=== PATIENT | male | born 1980 | race American Indian/Alaskan Native ===

== ENCOUNTER 2020-01-17 18:21 | Emergency (ER) | payer MEDICAID ==
[2020-01-17] MEDS ORDERED: Acetaminophen/HYDROcodone 325-5 MG Tab PO ONE (18:22)
[2020-01-17 18:29] VITALS: BP 129/79; PULSE 90
[2020-01-17] MEDS ORDERED: Acetaminophen/HYDROcodone 325-10 MG Tab PO ONE (18:44)
[2020-01-17] MEDS ORDERED: Ketorolac 30 MG/ML SDV IM ONE (18:44)
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
[2020-01-17] MEDS ORDERED: Acetaminophen/HYDROcodone 325-5 MG Tab ONE (21:43)
== END 2020-01-17 22:00 | disposition home or self-care (01) ==
LOC: DL.ED 18:21
DX: S00.03XA Contusion of scalp, initial encounter (principal); S00.83XA Contusion of other part of head, initial encounter; F17.210 Nicotine dependence, cigarettes, uncomplicated; Y04.0XXA Assault by unarmed brawl or fight, initial encounter
CPT/HCPCS: 71111; 72070; 72100; 81001; 87086; 96372; 99284; A9270; J1885